=== PATIENT | female | born 1980 | race Two or more races ===

== ENCOUNTER 2020-12-11 09:23 | Outpatient (CLI) | payer OTHER | END 2020-12-11 09:39 | disposition home or self-care (01) | LOC: RAD 09:23 → RX STUDY 10:30 | PROVIDERS: ATTEND Obstetrics & Gynecology Obstetrics | DX: N92.5 Other specified irregular menstruation (principal); N64.4 Mastodynia; N64.89 Other specified disorders of breast ==

== ENCOUNTER 2021-03-07 09:13 | Outpatient (CLI) | payer OTHER | END 2021-03-07 09:17 | disposition home or self-care (01) | LOC: SONOGRAMA 09:13 | DX: E04.2 Nontoxic multinodular goiter (principal) ==